=== PATIENT | male | born 1950 | race Caucasian/White ===

== ENCOUNTER → 2016-11-11 | Outpatient (REF) | LOC: WSOH 13:42 | DX: Z02.4 Encounter for examination for driving license (principal) ==

== ENCOUNTER → 2024-02-08 | Outpatient (CLI) | payer MEDICARE, BC | LOC: MHCPAIN 13:30 | DX: M48.02 Spinal stenosis, cervical region (principal); M54.12 Radiculopathy, cervical region; J44.9 Chronic obstructive pulmonary disease, unspecified; E11.9 Type 2 diabetes mellitus without complications; Z79.84 Long term (current) use of oral hypoglycemic drugs | CPT/HCPCS: G0463 ==

== ENCOUNTER 2024-02-23 06:58 | Outpatient (CLI) | payer MEDICARE, BC ==
[~2024-02-23] VITALS: Ht 182.9 cm; Wt 112.3 kg
[2024-02-23] VITALS (19 sets, daily range): BP systolic 132–186; BP diastolic 69–117; PULSE 54–81; TEMP 97.8
[~2024-02-23 06:58] MED LIST: FARXIGA5 PO; NATURE'S BLEND1 T11 PO; NEURONTIN300 MG/CAP PO; ORACEA40MG PO; RYBELSUS7 MG PO; SINGULAIR 110 MG/TAB PO; STIOLTO RESPIMAT4 GM IH; THEO-24400 MG PO; ZESTRIL40 MG PO; ZYRTEC 10MG10 MG PO
[2024-02-23] MEDS ORDERED: Midazolam 2 MG/2 ML VIAL IV SCH (08:19)
--- NOTE | 2024-02-23 09:07 | NUR ---
DR. HERNANDEZ IS AWARE OF THE HIGH BLOOD PRESSURES.
--- NOTE | 2024-02-23 09:09 | NUR ---
DR. HERNANDEZ AWARE OF THE 138/117 BP DURING PROCEDURE.
--- NOTE | 2024-02-23 09:18 | NUR ---
SPECIMEN COLLECTED AT 0831.
--- NOTE | 2024-02-23 12:10 | NUR ---
DISCHARGE INSTRUCTIONS GIVEN TO PT.PT VERBALIZES UNDERSTANDING.PT ESCORTED OUT VIA WHEELCHAIR BY THIS NURSE.
== END 2024-02-23 13:20 ==
LOC: COL.RAD 06:58
DX: R91.1 Solitary pulmonary nodule (principal)
CPT/HCPCS: J2250

== ENCOUNTER 2024-02-28 16:01 | Emergency (ER) | payer MEDICARE, BC ==
[~2024-02-28] VITALS: Ht 182.9 cm; Wt 109.1 kg
[~2024-02-28 16:01] MED LIST changes: -Iohexol 300 - 10 ML VIAL ONE; -Lidocaine PF 2% (20 MG/ML) 2 ML VIAL ONE
[2024-02-28 16:04] VITALS: TEMP 97.7
[2024-02-28 18:33] LABS: ALANINE AMINOTRANSFERASE 16 U/L (0-55); ALBUMIN 4.5 g/dL (3.4-4.8); ALKALINE PHOSPHATASE 56 U/L (40-150); ANION GAP 12 mmol/L (7-16); AST,SGOT 16 U/L (5-34); BILIRUBIN,TOTAL 0.7 mg/dL (0.2-1.2); BLOOD UREA NITROGEN 12 mg/dL (8-26); CALCIUM 9.7 mg/dL (8.4-10.2); CHLORIDE 107 mEq/L (98-107); CREATININE, serum 1.41 mg/dL (0.72-1.25); GLUCOSE 123 mg/dL (70-99); POTASSIUM 4.5 mEq/L (3.5-4.5); SODIUM 142 mEq/L (136-145); TOTAL PROTEIN 7.4 g/dl (6.2-8.1)
[2024-02-28 18:48] LABS: TROPONIN-I < 0.010 ng/mL (0.00-0.033)
[2024-02-28] MEDS ORDERED: NS 100 ML IV ONE (18:57)
[2024-02-28] MEDS ORDERED: Iohexol 300 - 100 ML VIAL IV ONE (18:57)
[2024-02-28 19:53] LABS: HEMATOCRIT 50.6 % (42.0-52.0); HEMOGLOBIN 17.6 g/dl (13.5-18.0); MEAN CELL VOLUME 90 fl (80.0-100.0); MEAN CORPUSCULAR HEMOGLOBIN 31 pg (27-31); MEAN CORPUSCULAR HGB CONC 35 g/dl (33.0-37.0); MEAN PLATELET VOLUME 10.1 fl (7.4-10.4); PLATELET COUNT 162 K/mm3 (130-400); RED BLOOD COUNT 5.64 M/mm3 (4.20-5.60); REDCELL DISTRIBUTION WIDTH-CV 14.5 % (11.5-14.5)
[2024-02-28 20:18] LABS: BAND 10 % (0-10); LYMPHOCYTE 6 % (20.0-51.0); NEUTROPHILS 83 % (42.0-75.2)
[2024-02-28 20:49] VITALS: BP 154/70; PULSE 64
== END 2024-02-28 20:49 | disposition home or self-care (01) ==
LOC: COL.ER 16:01
PROVIDERS: Emergency Medicine; Nurse Practitioner Primary Care
DX: R06.02 Shortness of breath (principal); R91.8 Other nonspecific abnormal finding of lung field; Z87.09 Personal history of other diseases of the respiratory system
CPT/HCPCS: Q9967

== ENCOUNTER → 2024-02-28 | Outpatient (CLI) | payer MEDICARE, BC ==
[~2024-02-28] MED LIST changes: +Iohexol 300 - 10 ML VIAL ONE; +Lidocaine PF 2% (20 MG/ML) 2 ML VIAL ONE
== END ==
LOC: MHCPAIN 07:58
DX: M54.12 Radiculopathy, cervical region (principal); M54.2 Cervicalgia
CPT/HCPCS: J1100; Q9967